=== PATIENT | female | born 1960 | race Caucasian/White ===

== ENCOUNTER 2018-11-14 09:54 | Inpatient (IN) | payer OTHER ==
[~2018-11-14] VITALS: Ht 162.6 cm; Wt 84.0 kg
[2018-11-14] VITALS (29 sets, daily range): BP systolic 123–164; BP diastolic 56–77; PULSE 54–76; RESP 14–20; Ht 162.6 cm; Wt 84.0 kg
[~2018-11-14 09:54] MED LIST: CEFAZOLIN 1 GM INJ ONE; CEFAZOLIN 2 GM/50 ML (PMX) 50 ML IVPB ONE; DEXAMETHASONE 4 MG/ML 5 ML INJ ONE; FENTAnyl 50 MCG/ML VIAL ONE; GLYCOPYRROLATE 0.4 MG INJ ONE; LIDOCAINE 2% (SDV) 5 ML INJ ONE; MIDAZOLAM 1 MG/ML 2 ML INJ ONE; NEOSTIGMINE 3 MG/3 ML SYRINGE ONE; ONDANSETRON 4 MG INJ ONE; PROPOFOL 20 ML ONE; ROCURONIUM 50 MG INJ ONE; SEVOFLURANE 15 MIN ONE; SOD CHLORIDE 0.9% 1,000 ML IV SCH; SUCCINYLCHOLINE CHLORIDE 100 MG/5 ML SYG IV ONE; SUGAMMADEX SODIUM 200 MG/2 ML VIAL IV ONE
[2018-11-14] MEDS ORDERED: HYDR25TA6 PO (10:21)
[2018-11-14] MEDS ORDERED: LISI-471 PO (10:21)
--- NOTE | 2018-11-14 13:04 | PREAC ---
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 not on B-Evelyn Reported Medications Hydrochlorothiazide* (Hydrochlorothiazide*) 25 Mg Tab, 25 MG PO DAILY, #30 TAB 11/14/18 Lisinopril* (Lisinopril*) 20 Mg Tablet, 20 MG PO DAILY, #30 TAB 11/14/18 Current Medications Sodium Chloride 1,000 ml @ 75 mls/hr [id number] IV ; Start 11/14/18 at 07:00; Stop 11/14/18 at 20:19 Influenza Virus Vaccine Quadrival (Fluzone) 0.5 ml ONCE ONCE IM* ; Start 11/15/18 at 10:00; Stop 11/15/18 at 10:01 Meds reviewed: Yes Allergies Coded Allergies: No Known Drug Allergies (Unverified Allergy, Unknown, 11/14/18) Allergies Reviewed: Yes Labs/Studies Labs Reviewed: Reviewed by anesthesiologist Result Diagram: 11/14/18 1055 11/14/18 1055 Laboratory Tests 11/14/18 10:55 test: Negative Studies: ECG Pre-procedure Exam Last vitals Vital Signs Date Temp Pulse Resp B/P (MAP) Pulse Ox O2 O2 Flow FiO2 Time Delivery Rate 11/14/18 97.2 61 18 162/77 99 Room Air 11:15 (105) Airway: Adequate mouth opening Mallampati: Mallampati II Teeth: Normal Lung: Normal Heart: Normal Anticipated Difficutly with IV: Anticipate Difficult IV Access ASA Physical Status ASA physical status: 2 Emergency: None Planned Anesthetic General/MAC: ETT, Other Neuraxial: Other Nerve block: Other Planned Pain Management Parenteral pain med, Local by surgeon Pre-operative Attestations Prior to commencing anesthesia and surgery, the patient was re-evaluated, there was verification of: *The patient's identity *The results of appropriate recent lab work and preoperative vital signs *The above evaluation not changing prior to induction *Anesthetic plan, risk benefits, alternative and complications discussed with patient/family; questions answered; patient/family understands, accepts and wishes to proceed. JOHANNA OMER MD Nov 14, 2018 13:04
[2018-11-14] MEDS ORDERED: FENTAnyl 50 MCG/ML VIAL ONE (14:13)
--- NOTE | 2018-11-14 15:25 | SIPON ---
Date/Time of Note Date/Time of Note DATE: 11/14/18 TIME: 15:24 Operative Report Preoperative Diagnosis Bilateral breast cancer Postoperative Diagnosis Same Operation/Procedure Performed Bilateral modified radical mastectomies Surgeon see signature line video production assistant Dr Banks Anesthesia: general Estimated blood loss: 50 - 100 ml's Transfusion Required none Specimen Right breast axillary contents and left breast and axillary contents Grafts/Implants none Complications none CELESTINE DESOUZA MD Nov 14, 2018 15:25
[2018-11-14] MEDS ORDERED: morphine 2 MG INJ IV PRN (15:30)
[2018-11-14] MEDS ORDERED: ONDANSETRON 4 MG INJ IV PRN ×2 (15:30→16:00)
[2018-11-14] MEDS ORDERED: HYDROmorphONE 1 MG/5 ML IV SYRINGE IV ONE (15:50)
[2018-11-14] MEDS ORDERED: MEPERIDINE 25 MG INJ ONE (15:50)
[2018-11-14] MEDS ORDERED: KETOROLAC 15 MG INJ IV PRN (16:00)
[2018-11-14] MEDS ORDERED: ACETAMINOPHEN 1000MG/100ML IV 100 ML IVPB PRN (16:00)
[2018-11-14] MEDS ORDERED: EPHEDrine SULFATE 50 MG/5 ML SYG IV PRN (16:00)
[2018-11-14] MEDS ORDERED: ALBUTEROL 0.083% (NEB) 2.5 MG/3 ML AMP HHN PRN (16:00)
[2018-11-14] MEDS ORDERED: HYDROmorphONE 1 MG/5 ML IV SYRINGE IV PRN ×3 (16:00)
[2018-11-14] MEDS ORDERED: MEPERIDINE 25 MG INJ IV PRN (16:00)
[2018-11-14] MEDS ORDERED: hydrALAzine 20 MG INJ IV PRN (16:00)
[2018-11-14] MEDS ORDERED: LABETALOL HCL 20MG INJ IV PRN (16:00)
[2018-11-14] MEDS ORDERED: DIPHENHYDRAMINE 50 MG INJ IV PRN (16:00)
[2018-11-14] MEDS ORDERED: FENTAnyl 50 MCG/ML VIAL IV PRN ×3 (16:00)
--- NOTE | 2018-11-14 16:38 | OPR ---
DATE OF OPERATION: 11/14/2018 PREOPERATIVE DIAGNOSIS: Bilateral breast cancer. POSTOPERATIVE DIAGNOSIS: Bilateral breast cancer. OPERATION PERFORMED: Bilateral modified radical mastectomies. ANESTHESIA: General. ANESTHESIOLOGIST: Toby Ashton MD SURGEON: Jose Angel Lomas MD LIME SLUDGE MIXER: Ezequiel Banks MD INDICATIONS FOR PROCEDURE: The patient is a 58-year-old female who underwent surveillance mammograph y. In the left breast, she was found to have extensive microcalcifications and biopsies revealed DCI S in at least 2 different quadrants. In the right breast, she also was found to have suspicious lesi on and underwent biopsy which also revealed DCIS, rule out invasion. She was counseled as to need fo r surgery. On the left side, she was told she would definitely need a mastectomy. She requested erika ateral mastectomies. She consented and was scheduled for surgery. DESCRIPTION OF PROCEDURE: The patient was brought to the operating theater, placed under general ane sthesia. The breast and axillary regions were prepped and draped bilaterally in the usual sterile fa shion. Attention was first directed to the right side. A planned elliptical incision was demarcated with marking pen around the nipple-areolar complex taking care to preserve overlying breast skin in anticipation of possible future reconstruction. The incision was carried out with 15 blade scalpel. Subcutaneous tissue was dissected with cautery. The skin edges were then elevated with Allis Frank clamps and skin flaps were created using cautery, first superiorly to the clavicle, then medially to the sternal border, inferiorly to the inframammary fold and laterally until the latissimus dorsi musc le was identified throughout its course. Mastectomy then took place from medial to lateral using cau tyra. At the border of the pectoralis major muscle, the pectoralis minor muscle was identified. The clavipectoral fascia was incised. Dissection continued. There were a few enlarged level 1 lymph no rosalva of uncertain clinical significance. They were resected using the LigaSure device. Specimen was then removed, oriented and sent for permanent pathologic analysis. The wound was then irrigated. Mi nimal bleeding was controlled with cautery. Two #10 [place] Demar-Turcios drains were then brought th rough the right mid axillary line. One was cut to size and laid within the axilla, the other was cut to size and laid over the pectoralis major muscle. Both drains were secured in place with 2-0 nylon sutures in the standard fashion. The skin incision was then reapproximated with skin mark. Attention was then directed to the left side. Again, the planned incision was then demarcated with m arking pen and carried out with 15 blade scalpel. Subcutaneous tissue was dissected with cautery. S kin edges were elevated with Allis [place] clamps. The skin flaps were created using cautery, first pisano periorly to the clavicle, then medially to the sternal border, inferiorly to the inframammary fold an d laterally until the latissimus dorsi was identified throughout its course. Mastectomy then took pl julio c from medial to lateral using cautery at the border of the pectoralis major muscle, the pectoralis minor muscle was identified. Clavipectoral fascia was incised. The axilla was entered. There appe ared to be several enlarged lymph nodes. These lymph nodes were resected and sent for intraoperative analysis performed by attending pathologist, Dr. Gabriela Soriano. He stated that they were grossly neg ative for tumor and due to the fact that there were fatty declined to pursue frozen section. They we re sent for permanent pathologic analysis. Resection of the remaining axillary tail of Peter then t ook place using a combination of cautery and the LigaSure. Specimen was removed, oriented and sent f or permanent pathologic analysis. The wound was irrigated. Minimal bleeding was controlled with cau tyra. Two #10 flat Demar-Turcios drains were then brought through the left mid axillary line. One w as cut to size and laid within the axilla, the other was cut to size and laid over the pectoralis horacio or muscle, and the skin was then reapproximated with skin mark. The patient tolerated the procedu re well. Total blood loss was approximately 100 mL. There were no complications and the patient was transported in stable condition to recovery room where circumferential compression dressing was appl ied. Dictated By: JOSE ANGEL ALMANZA/ELISSA Conf#: [id number] DID#: [id number]
[2018-11-14] MEDS: D5W-0.45 NACL + KCL 20 MEQ 1,000 ML IV SCH ×2 (20:34→23:13)
[2018-11-14] MEDS: IBUPROFEN 600 MG TAB PO PRN (21:51)
--- NOTE | 2018-11-14 22:16 | HP ---
DATE OF ADMISSION: 11/14/2018 CHIEF COMPLAINT AND HISTORY OF PRESENT ILLNESS: The patient is a 58-year-old female with history of hypertension and osteoarthritis is being followed by Dr. Lomas as an outpatient. The patient underwe nt surveillance mammography and was found to have extensive microcalcification in the left breast. S ubsequent biopsy revealed ductal carcinoma in situ at least 2 different quadrant in the right breast. The patient was also found to have suspicious lesion and underwent biopsy which also revealed DCIS, rule out invasion. The patient was counseled as to need for surgery. The patient was diagnosed wit h bilateral breast cancer and was admitted today and underwent bilateral modified radical mastectomy. The patient has significant postoperative pain. The patient is being admitted for evaluation and m anagement. No reported nausea, vomiting. No reported headache, dizziness, syncope. No history of f ever or chills. No history of focal weakness. No history of headache, dizziness, syncope. No histo ry of recent infection. REVIEW OF SYSTEMS: Other than postoperative pain, rest of review of systems is unremarkable. ALLERGIES: NONE. SOCIAL HISTORY: No smoking or alcohol. FAMILY HISTORY: Noncontributory. MEDICATIONS PRIOR TO ADMISSION: 1. Lisinopril. 2. Hydrochlorothiazide. PHYSICAL EXAMINATION: GENERAL: The patient is awake, alert. VITAL SIGNS: Temperature 98.1, pulse 64, respirations 16, blood pressure 156/73, O2 saturation 92% t o 97% room air. HEENT: No eye discharge or redness. Conjunctivae are normal. Oropharynx clear. NECK: Supple. No mass. No thyromegaly. CHEST: Fairly clear. CARDIOVASCULAR: S1, S2 normal. No murmur. ABDOMEN: Soft and nontender. No palpable mass. EXTREMITIES: No leg edema. NEUROLOGIC: The patient is awake, alert, follows simple commands with no gross focal deficit. LABORATORY DATA: Labs done this morning, WBC 4.5, hemoglobin 12.7, platelet 231. Chem 18 unremarkab le with potassium of 3.9, glucose 95, calcium normal. Liver enzymes normal. Chest x-ray done this m orning did not have any evidence of active cardiopulmonary disease. The patient did have moderate de generative changes in the thoracic spine and calcific tendonitis, left humeral head. IMPRESSION: 1. Bilateral breast cancer status post bilateral mastectomy. 2. Hypertension. 3. DJD. PLAN: The patient admitted on medical floor. The patient will be started on clear liquid diet, whic h will be advanced as tolerated. The patient will resume antihypertensive medications as at home. F or pain control, the patient will be started on Tylenol, Motrin and IV morphine. We will use SCD for DVT prophylaxis. Further recommendation will depend on patient's hospital course. Dictated By: NEELIMA PETERSON MD AB/NTS Conf#: [id number] DID#: [id number] CC: CELESTINE LOMAS MD;*EndCC*
[2018-11-15] MEDS ORDERED: morphine SULFATE/PF (2 MG/2 ML) SYG IV PRN (02:02)
[2018-11-15 03:57] VITALS: BP 117/56; PULSE 59; RESP 16
[2018-11-15] MEDS: D5W-0.45 NACL + KCL 20 MEQ 1,000 ML IV SCH ×2 (04:48→12:11)
[2018-11-15 07:54] VITALS: BP 114/57; PULSE 70; RESP 18
[2018-11-15] MEDS: LISINOPRIL 20 MG TAB PO SCH (09:20)
[2018-11-15] MEDS: HYDROCHLOROTHIAZIDE 25 MG TAB PO SCH (09:21)
[2018-11-15] MEDS ORDERED: INFLUENZA VIRUS VACCINE 0.5 ML (DISPENSING) IM* ONE (10:00)
[2018-11-15] MEDS ORDERED: PNEUMOCOCCAL VACCINE 0.5 ML INJ (DISPENSING) IM* ONE (10:00)
[2018-11-15] MEDS: IBUPROFEN 600 MG TAB PO PRN (10:06)
[2018-11-15 14:26] VITALS: BP 147/69; PULSE 66; RESP 18
--- NOTE | 2018-11-15 14:48 | PN ---
DATE: 11/15/2018 Postop day #1 status post bilateral modified radical mastectomy. SUBJECTIVE: Complains of pain. OBJECTIVE: GENERAL: Awake, alert, oriented x3, VITAL SIGNS: Temperature maximum today 98.6, heart rate 70, respiration 18, blood pressure 114/57, s aturation 95% on room air. HEART: Regular. LUNGS: Clear. ABDOMEN: Soft. Dressing is intact. INPUT AND OUTPUT: There are totally 4 Demar-Turcios drains, 2 on each side. Drainage since the time of operation which was yesterday afternoon until 7:00 a.m. today has been 100 mL on the left side an d 160 mL on the right side. The fluid which is in the tubing running the bag is bloody. All of them are not serosanguineous yet. ASSESSMENT: The patient is 58 years old with mild bilateral radical mastectomy with drainage from 4: 00 in the afternoon yesterday until 6:00 a.m. today has been totally 260 mL which is bloody and now i s accumulating again. PLAN: Considering the bloody drainage of the Demar-Turcios, we are going to keep the patient 1 more night overnight and 1 more day to make sure that she is not bleeding massively and then we will hopef ully discharge her tomorrow. Also, we will start the patient on [place] p.o. Dictated By: ARNULFO JAIME MD PS/NTS Conf#: [id number] DID#: [id number] CC: CELESTINE DESOUZA MD; NEELIMA PETERSON MD;*EndCC*
--- NOTE | 2018-11-15 16:05 | PN ---
Date/Time of Note Date/Time of Note DATE: 11/15/18 TIME: 16:05 Assessment/Plan VTE Prophylaxis Risk score (from Ns)>0 risk: 5 SCD applied (from [facility] [place]): Yes Pharmacological prophylaxis: NA/contraindicated Pharm contraindication: bleeding, surgical contra Lines/Catheters IV [facility] Type [facility] Peripheral IV Assessment/Plan Assessment/Plan 1. Bilateral breast cancer status post bilateral mastectomy. Continue IV fluids and postoperative antibiotics. Patient has moderate to large amount of drainage from JPs complains of generalized weakness. Pain is adequately controlled will obtain CBC tomorrow continue to monitor JO ANN drainage for 1 more day. 2. Hypertension. Continue lisinopril and hydralazine. 3. DJD. Further recommendations based on clinical course. Plan of care discussed with Dr. Jeffrey. Result Diagram: 11/14/18 1055 11/14/18 1055 Exam/Review of Systems Vital Signs Vitals Vital Signs Date Temp Pulse Resp B/P (MAP) Pulse Ox O2 O2 Flow FiO2 Time Delivery Rate 11/15/18 98.1 66 18 147/69 98 14:26 (95) 11/15/18 Room Air 07:54 11/14/18 2.0 15:55 Intake and Output 11/14/18 11/14/18 11/15/18 1515:00 23:00 07:00 IntakeIntake Total 1200 ml 1831.25 ml OutputOutput Total 0 ml 120 ml 1060 ml BalanceBalance 0 ml 1080 ml 771.25 ml Exam Constitutional: alert, oriented Head: normocephalic Neck: supple Respiratory: clear to auscultation Cardiovascular: nl pulses Gastrointestinal: soft, non-tender Musculoskeletal: nl extremities to inspection Extremities: normal pulses Neurological: nl mental status Additional Comments Status post bilateral mastectomy, bilateral axillary JO ANN 2 on each side Medications Medications Current Medications Ondansetron HCl (Zofran Inj) 4 mg Q6H PRN IV NAUSEA AND/OR VOMITING; Start 11/14/18 at 15:30 Hydrochlorothiazide (Hydrochlorothiazide) 25 mg DAILY PO Last administered on 11/15/18at 09:21; Admin Dose 25 MG; Start 11/15/18 at 09:00 Lisinopril (Zestril) 20 mg DAILY PO Last administered on 11/15/18at 09:20; Admin Dose 20 MG; Start 11/15/18 at 09:00 Ibuprofen (Motrin) 600 mg Q8H PRN PO PAIN LEVEL 1-3 Last administered on at 10:06; Admin Dose 600 MG; Start 11/14/18 at 21:30 Morphine Sulfate (morphine SULFATE (PF)) 2 mg Q1H PRN IV PAIN Last administered on 11/15/18at 02:06; Admin Dose 2 MG; Start 11/15/18 at 02:02 Acetaminophen/ Hydrocodone Bitart (Remlap (5/325)) 1 tab Q4H PRN PO MODERATE PAIN LEVEL 4-6; Start 11/15/18 at 14:30 TANG JOHNSON Nov 15, 2018 16:05
[2018-11-15] MEDS ORDERED: morphine LIQ (10 MG/5 ML) CUP PO PRN (17:00)
--- NOTE | 2018-11-15 19:46 | RADRPT ---
Vent Rate: 56 bpm RR Interval: 0 msec CO Interval: 182 msec QRS Duration: 88 msec QT Interval: 456 msec QTC Interval: 440 msec P-R-T Royal: 28 - 51 - 35 degrees Sinus bradycardia Cannot rule out Anterior infarct , age undetermined Abnormal ECG Electronically Signed By: Shaw Robbins [id number]
[2018-11-15 19:48] VITALS: BP 150/68; PULSE 67; RESP 16
[2018-11-15] MEDS: HYDROCODONE/APAP (5/325) TAB PO PRN (23:18)
[2018-11-16 02:21] VITALS: BP 126/61; PULSE 62; RESP 16
[2018-11-16 07:46] VITALS: BP 135/67; PULSE 53; RESP 18
[2018-11-16] MEDS: LISINOPRIL 20 MG TAB PO SCH (09:23)
[2018-11-16] MEDS: HYDROCHLOROTHIAZIDE 25 MG TAB PO SCH (09:23)
[2018-11-16] MEDS: HYDROCODONE/APAP (5/325) TAB PO PRN ×2 (09:27→17:54)
[2018-11-16] MEDS ORDERED: IBUP1TAB76 PO (13:53)
[2018-11-16 14:14] VITALS: BP 121/76; PULSE 88; RESP 18
--- NOTE | 2018-11-16 14:41 | PN ---
DATE: 11/16/2018 Postop day #2 status post bilateral mastectomy. SUBJECTIVE: Feels better, still has some pain, has been able to walk around and tolerating diet. OBJECTIVE: GENERAL: Alert, awake, oriented x3. VITAL SIGNS: Temperature maximum 98, heart rate 62, respirations 16, blood pressure 135/67, saturati on 98% room air. LABORATORY DATA: WBC 6500, hemoglobin 10.10, hematocrit 31.2. Platelet count 197. Chemistry within normal limits; sodium, potassium, BUN, creatinine. Dressing is intact. Patient has full range of m otion of upper extremities. Drainage, patient has 4 Demar-Kyaw and the amount of drainage has be en 195 mL from 2 over the past 24 hours, serosanguinous. Therefore, the patient can be discharged ho ok today. Instruction was given to the patient and to the patient's for changing the dressin g and measuring the amount of drainage. The patient to call Dr. Desouza' office and make an appointmen t for followup. Prescription will be given for Duexis pain medication because she cannot take [place]. Dictated By: ARNULFO JAIME MD PS/NTS Conf#: [id number] DID#: [id number] CC: CELESTINE DESOUZA MD;*EndCC*
--- NOTE | 2018-11-16 23:10 | DS ---
Date/Time of Note Date/Time of Note DATE: 11/16/18 TIME: 23:03 Discharge Summary Admission/Discharge Info Admit Date/Time Nov 14, 2018 at 09:54 Discharge Date/Time Nov 16, 2018 at 18:20 Patient Condition: Stable Hx of Present Illness The patient is a 58-year-old female with history of hypertension and osteoarthritis is being followed by Dr. Lomas as an outpatient. The patient underwent surveillance mammography and was found to have extensive microcalcification in the left breast. Subsequent biopsy revealed ductal carcinoma in situ at least 2 different quadrant in the right breast. The patient was also found to have suspicious lesion and underwent biopsy which also revealed DCIS, rule out invasion. The patient was counseled as to need for surgery. The patient was diagnosed with bilateral breast cancer and was admitted today and underwent bilateral modified radical mastectomy. The patient has significant postoperative pain. The patient is being admitted for evaluation and management. No reported nausea, vomiting. No reported headache, dizziness, syncope. No history of fever or chills. No history of focal weakn ess. No history of headache, dizziness, syncope. No history of recent infection. Hospital Course - Bilateral breast cancer, status post bilateral mastectomy. Pain is adequately controlled. - Hypertension. Continue lisinopril and hydrochlorothiazide. - DJD. D/W Dr Jeffrey. Home Meds Active Scripts Ibuprofen-Famotidine (Duexis) 80-26.6 Mg Tablet, 1 TAB PO BID, #30 TAB Prov:TANG JOHNSON 11/16/18 Reported Medications Hydrochlorothiazide* (Hydrochlorothiazide*) 25 Mg Tab, 25 MG PO DAILY, #30 TAB 11/14/18 Lisinopril* (Lisinopril*) 20 Mg Tablet, 20 MG PO DAILY, #30 TAB 11/14/18 Follow-up Plan f/up with Dr Lomas in 1-2 weeks. Primary Care Provider Not On Staff Doctor Time spent on discharge: < 30 minutes Pending Labs Laboratory Tests Test 11/16/18 04:34 White Blood Count 6.5 10^3/ul (4.8-10.8) Red Blood Count 3.57 10^6/ul (4.20-5.40) Hemoglobin 10.0 g/dl (12.0-16.0) Hematocrit 31.2 % (37.0-47.0) Mean Corpuscular Volume 87.4 fl (82.0-101.0) Mean Corpuscular Hemoglobin 28.0 pg (29.0-33.0) Mean Corpuscular Hemoglobin Concent 32.1 g/dl (32.0-37.0) Red Cell Distribution Width 14.3 % (11.5-14.5) Platelet Count 197 10^3/UL (140-415) Mean Platelet Volume 10.4 fl (7.4-10.4) Immature Granulocytes % 0.300 % (0.001-0.429) Neutrophils % 50.7 % (39.0-77.0) Lymphocytes % 35.6 % (15.0-51.0) Monocytes % 8.9 % (0.0-11.0) Eosinophils % 3.9 % (0.0-7.0) Basophils % 0.6 % (0.0-2.0) Nucleated Red Blood Cells % 0.0 /100WBC (0.0-0.0) Immature Granulocytes # 0.020 10^3/ul (0.0-0.031) Neutrophils # 3.3 10^3/ul (1.6-7.5) Lymphocytes # 2.3 10^3/ul (0.8-2.9) Monocytes # 0.6 10^3/ul (0.3-0.9) Eosinophils # 0.3 10^3/ul (0.0-0.5) Basophils # 0.0 10^3/ul (0.0-0.1) Nucleated Red Blood Cells # 0.0 10^3/ul (0.0-0.0) Sodium Level 140 mmol/L (135-144) Potassium Level 4.2 mmol/L (3.5-5.1) Chloride Level 108 mmol/L (97-110) Carbon Dioxide Level 26 mmol/L (21-31) Anion Gap 6 (5-13) Blood Urea Nitrogen 15 mg/dl (7-20) Creatinine 0.64 mg/dl (0.44-1.00) Est Glomerular Filtrat Rate mL/min > 60 mL/min (>60) Glucose Level 97 mg/dl (70-220) Calcium Level 8.5 mg/dl (8.4-10.2) TANG JOHNSON Nov 16, 2018 23:10
== END 2018-11-16 18:20 | disposition home or self-care (01) | DRG 581 ==
LOC: REC 09:54 → EDSTATUS 13:00 → MS1 18:34
PROVIDERS: ADMIT Surgery Surgical Oncology; ATTEND Surgery Surgical Oncology
PROC: 07B90ZX Excision of Left Internal Mammary Lymphatic, Open Approach, Diagnostic (ICD-10-PCS; 2018-11-14)
PROC: 07B80ZX Excision of Right Internal Mammary Lymphatic, Open Approach, Diagnostic (ICD-10-PCS; 2018-11-14)
PROC: 0HBV0ZZ Excision of Bilateral Breast, Open Approach (ICD-10-PCS; principal; 2018-11-14 09:00)
DX: D05.12 Intraductal carcinoma in situ of left breast (principal); D05.11 Intraductal carcinoma in situ of right breast; I10 Essential (primary) hypertension
CPT/HCPCS: 71045; 80048; 80053; 85025; 85610; 85730; 88307; 88341; 88342; 90686; 93005; J0690; J1100; J1170; J2175; J2250; J2274; J2405; J2710; J3010; J3480

== ENCOUNTER 2019-01-06 07:38 | Day surgery (SDC) | payer OTHER ==
[~2019-01-06] VITALS: Ht 162.6 cm; Wt 82.6 kg
[~2019-01-06 07:38] MED LIST changes: -CEFAZOLIN 1 GM INJ ONE; -CEFAZOLIN 2 GM/50 ML (PMX) 50 ML IVPB ONE; -DEXAMETHASONE 4 MG/ML 5 ML INJ ONE; -FENTAnyl 50 MCG/ML VIAL ONE; -GLYCOPYRROLATE 0.4 MG INJ ONE; +HYDR25TA6 PO; +IBUP1TAB76 PO; -LIDOCAINE 2% (SDV) 5 ML INJ ONE; +LISI-471 PO; -MIDAZOLAM 1 MG/ML 2 ML INJ ONE; -NEOSTIGMINE 3 MG/3 ML SYRINGE ONE; -ONDANSETRON 4 MG INJ ONE; -PROPOFOL 20 ML ONE; -ROCURONIUM 50 MG INJ ONE; -SEVOFLURANE 15 MIN ONE; -SOD CHLORIDE 0.9% 1,000 ML IV SCH; -SUCCINYLCHOLINE CHLORIDE 100 MG/5 ML SYG IV ONE; -SUGAMMADEX SODIUM 200 MG/2 ML VIAL IV ONE
[2019-01-06] MEDS ORDERED: CEFAZOLIN 1 GM/50 ML (PMX) 50 ML IVPB ONE ×2 (08:00→10:05)
[2019-01-06] MEDS ORDERED: POLYMYXIN/BACITRACIN 1L IRRIG IRR ONE (08:00)
[2019-01-06] MEDS ORDERED: SOD CHLORIDE 0.9% 1,000 ML IV SCH (08:00)
[2019-01-06 08:52] VITALS: BP 109/66; PULSE 63; RESP 16
[2019-01-06 08:54] VITALS: Ht 162.6 cm; Wt 82.6 kg
--- NOTE | 2019-01-06 09:38 | HPN ---
Date/Time of Note Date/Time of Note DATE: 01/06/19 TIME: 09:38 Interval H&P Admission Note Pt. seen H&P reviewed: No system changes JOSEPH PABLO MD Jan 06, 2019 09:38
[2019-01-06] MEDS ORDERED: HEPARIN 1000 UNITS/ML 10 ML INJ ONE (10:03)
[2019-01-06] MEDS ORDERED: LIDOCAINE 1%/EPI (1:100,000) (MDV) 20 ML ONE (10:04)
[2019-01-06] MEDS ORDERED: FENTAnyl 50 MCG/ML VIAL ONE (10:05)
[2019-01-06] MEDS ORDERED: HYDROCODONE/APAP (5/325) TAB PO PRN (12:00)
[2019-01-06 12:20] VITALS: BP 126/68; PULSE 65; RESP 18
--- NOTE | 2019-01-06 14:06 | RADRPT ---
Echocardiogram Report Patient Name: Sharmaine MANNINGnt ID: [id number] : 1960 (58y 9m)Study Date: 01/06/2019 9:19:19 AM Gender: FAccession #: [id number] Tech: Alexander Shultz RDCS Location: [facility] Ref.Physician: DESMOND FORD Height(Cm): BSA: Weight(Kg): Quality: AdequateAccount #: Procedures: Echocardiographic Report: Transthoracic echocardiogram with complete 2D, M-Mode, and doppler examination. Indications: Breast Cancer. Measurements: 2D/M Mode Doppler Measurement Value Normal Range Measurement Value Normal Range LVIDd 2D 4.1 [ 3.8 - 5.2 ] cm AV Peak Mahesh 1.5 [ 100.0 - 170.0 ] cm/sec LVIDs 2D 2.5 [ 2.2 - 3.5 ] cm AV Peak PG 8.0 [ 2.0 - 9.0 ] mmHg LVPWd 2D 1.2 [ 0.6 - 0.9 ] cm LVOT Peak Mahesh 1.1 [ 70.0 - 110.0 ] cm/sec IVSd 2D 1.1 [ 0.6 - 0.9 ] cm LVOT Peak PG 5.0 [ 2.0 - 6.0 ] mmHg AoR Diam 2D 3.0 [ 2.3 - 3.1 ] cm MV E Peak Mahesh 0.6 [ 60.0 - 130.0 ] cm/sec EDV 2D 75.1 [ 46.0 - 106.0 ] ml MV A Peak Mahesh 0.8 [ 100.0 - 120.0 ] cm/sec ESV 2D 22.1 [ 14.0 - 42.0 ] ml MV E/A 0.8 [ 0.8 - 1.5 ] ratio EF 2D 70.6 [ 54.0 - 74.0 ] percent MV Decel Time 190 [ 104 - 258 ] msec LA Dimen 2D 3.3 [ 2.7 - 3.8 ] cm Lat E` Mahesh 0.1 [ 10.0 - 15.0 ] cm/sec Lateral E/E` 6.6 [ 1.0 - 2.0 ] ratio MV E/A 0.8 [ 0.8 - 1.5 ] ratio Findings: Left Ventricle: Normal left ventricular systolic function. Normal left ventricular cavity size. Mild concentric left ventricular hypertrophy. Ejection fraction is visually estimated at 65 %. Tissue Doppler/Mitral Doppler indices are consistent with impaired relaxation (Stage I diastolic dysfunction). Right Ventricle: Normal right ventricular size. Normal right ventricular systolic function. Left Atrium: The left atrium is normal in size. Right Atrium: The right atrium is normal in size. Mitral Valve: Normal appearance and function of the mitral valve with trace physiologic regurgitation. Aortic Valve: Normal appearance of the aortic valve. No significant aortic stenosis or insufficiency. Tricuspid Valve: Normal appearance of the tricuspid valve. Unable to obtain RVSP due to minimal presence of tricuspid regurgitation. Pulmonic Valve: Normal pulmonic valve appearance. Pericardium: Normal pericardium with no significant pericardial effusion. Aorta: Normal aortic root. IVC: Normal size and normal respiratory collapse consistent with normal right atrial pressure. Conclusions: Normal left ventricular systolic function. Normal left ventricular cavity size. Mild concentric left ventricular hypertrophy. Ejection fraction is visually estimated at 65 %. Tissue Doppler/Mitral Doppler indices are consistent with impaired relaxation (Stage I diastolic dysfunction). Normal appearance and function of the mitral valve with trace physiologic regurgitation. Normal appearance of the aortic valve. No significant aortic stenosis or insufficiency. Normal appearance of the tricuspid valve. Unable to obtain RVSP due to minimal presence of tricuspid regurgitation. Electronically Signed By: Luis Aleman 2019-01-06 14:05:00 PST
== END 2019-01-06 14:35 | disposition home or self-care (01) ==
LOC: SDS 07:38
PROVIDERS: ATTEND Internal Medicine Hematology & Oncology
DX: C50.912 Malignant neoplasm of unspecified site of left female breast (principal); C50.911 Malignant neoplasm of unspecified site of right female breast; I10 Essential (primary) hypertension
CPT/HCPCS: 36561; 76942; 93306; J0690; J1644; J3010; Z7610